=== PATIENT | female | born 1930 | race Asian ===

== ENCOUNTER 2016-11-02 11:54 | Inpatient (IN) | payer OTHER, MEDICAID ==
[~2016-11-02] VITALS: Ht 152.4 cm; Wt 43.1 kg
[2016-11-02 11:58] VITALS: BP 133/68
--- NOTE | 2016-11-02 12:08 | Emergency Room Report ---
History of Present Illness General Chief Complaint: Multiple Trauma/Fall Source: Patient Present Illness HPI Patient presents by paramedics for reports of a mechanical fall Patient present with pain to the left mid femur There was a question of mild headache Patient was given large amounts of morphine in the field At this time not able to give full history even with Danish translation There was no reports of lightheadedness or dizziness There was no reports of syncope Denies any neuropathy Allergies: Coded Allergies: No Known Allergies (Unverified , 11/02/16) Patient History Past Medical History: see triage record Pertinent Family History: none Reviewed Nursing Documentation: PMH: Agreed, PSxH: Agreed Nursing Documentation-PMH Hx Cardiac Problems: Yes Review of Systems All Other Systems: negative except mentioned in HPI Physical Exam Vital Signs Date Time Temp Pulse Resp B/P Pulse Ox O2 Delivery O2 Flow Rate FiO2 11/02/16 11:39 98.1 78 16 130/80 98 Sp02 EP Interpretation: reviewed, normal General Appearance: well appearing, no apparent distress Head: normocephalic, atraumatic Eyes: bilateral eye EOMI, bilateral eye PERRL ENT: hearing grossly normal, normal pharynx, TMs + canals normal, uvula midline Neck: full range of motion, supple, no meningismus, no bony tend Respiratory: lungs clear, normal breath sounds, no rhonchi, no respiratory distress, no retraction, no accessory muscle use Cardiovascular #1: normal peripheral pulses, regular rate, rhythm, no edema, no gallop, no JVD, no murmur Gastrointestinal: normal bowel sounds, non tender, soft, no mass, no organomegaly, non-distended, no guarding, no hernia, no pulsatile mass, no rebound Genitourinary: no CVA tenderness Musculoskeletal: other - Traction splint in place on the left lower leg sensory is intact, however significant pain to the mid femur Neurologic: oriented x3, responsive, sensory intact Psychiatric: mood/affect normal Skin: warm/dry, palpation normal Lymphatic: normal inspection, no adenopathy Procedures Splinting Splinting : Consent: Verbal Location: traction splint left lower leg Pre-Made Type: Pre-Proc Neuro Vasc Exam: normal Post-Proc Neuro Vasc Exam: normal Patient Tolerated: Well Complications: None Medical Decision Making Diagnostic Impression: Primary Impression: Femur fracture, left ER Course Given the patient's history examined presentation multiple imaging were obtained Baseline preop workup was also initiated Patient's imaging reveals mid femur fracture Traction splint is already in place and will be further utilized Orthopedics was contacted Patient admitted for further inpatient care Labs Test 11/02/16 12:15 White Blood Count 11.9 K/UL (4.8-10.8) Red Blood Count 3.78 M/UL (4.20-5.40) Hemoglobin 11.9 G/DL (12.0-16.0) Hematocrit 36.3 % (37.0-47.0) Mean Corpuscular Volume 96 FL (80-99) Mean Corpuscular Hemoglobin 31.6 PG (27.0-31.0) Mean Corpuscular Hemoglobin Concent 32.9 G/DL (32.0-36.0) Red Cell Distribution Width 11.0 % (11.6-14.8) Platelet Count 265 K/UL (150-450) Mean Platelet Volume 6.5 FL (6.5-10.1) Neutrophils (%) (Auto) 62.5 % (45.0-75.0) Lymphocytes (%) (Auto) 28.0 % (20.0-45.0) Monocytes (%) (Auto) 8.2 % (1.0-10.0) Eosinophils (%) (Auto) 0.6 % (0.0-3.0) Basophils (%) (Auto) 0.6 % (0.0-2.0) Prothrombin Time 9.4 SEC (9.30-11.50) Prothromb Time International Ratio 0.9 (0.9-1.1) Activated Partial Thromboplast Time 23 SEC (23-33) Sodium Level 139 mEQ/L (135-145) Potassium Level 4.0 mEQ/L (3.4-4.9) Chloride Level 100 mEQ/L (98-107) Carbon Dioxide Level 25 mEQ/L (20-30) Anion Gap 14 (5-15) Blood Urea Nitrogen 19 mg/dL (7-23) Creatinine 0.9 mg/dL (0.5-0.9) Estimat Glomerular Filtration Rate mL/min (>60) Glucose Level 148 mg/dL (74-106) Calcium Level 9.2 mg/dL (8.6-10.2) Total Bilirubin 0.6 mg/dL (0.0-1.2) Aspartate Amino Transf (AST/SGOT) 18 U/L (5-40) Alanine Aminotransferase (ALT/SGPT) 12 U/L (3-33) Alkaline Phosphatase 63 U/L (35-104) Total Creatine Kinase 76 U/L (26-140) Creatine Kinase MB 1.9 ng/mL (< 3.8) Creatine Kinase MB Relative Index 2.5 Troponin I < 0.30 ng/mL (<=0.30) Total Protein 6.8 g/dL (6.6-8.7) Albumin 3.9 g/dL (3.5-5.2) Globulin 2.9 g/dL Albumin/Globulin Ratio 1.3 (1.0-2.7) Rhythm Strip Diag. Results EP Interpretation: yes Rate: 66 Rhythm: NSR, no PVC's, no ectopy Chest X-Ray Diagnostic Results EP Interpretation: Yes Findings: no consolidation, no effusion, no pneumothorax, other - Chronic pathology Number of Views: 1 Other X-Ray Diagnostic Results Other X-Ray Diagnostic Results #1: EP Interpretation: Yes Findings: no fractures, no dislocation, no soft tissue swelling Number of Views: 1 - pelvic Other X-Ray Diagnostic Results #2: EP Interpretation: Yes Findings: no soft tissue swelling, other - mid femur fracture, displaced Number of Views: 2 - left femur Last Vital Signs Date Time Temp Pulse Resp B/P Pulse Ox O2 Delivery O2 Flow Rate FiO2 11/02/16 11:58 98.3 70 18 133/68 99 Status: improved Disposition: ADMITTED INPATIENT Condition: Serious NADYA RANDHAWA D.O. Nov 02, 2016 12:08
[2016-11-02 12:30] LABS: BASOPHILS % (AUTO) 0.6 % (0.0-2.0); EOSINOPHILS % (AUTO) 0.6 % (0.0-3.0); MEAN CORPUSCULAR HEMOGLOBIN 31.6 PG (27.0-31.0); MEAN CORPUSCULAR HGB CONC 32.9 G/DL (32.0-36.0); MEAN CORPUSCULAR VOLUME 96 FL (80-99); MEAN PLATELET VOLUME 6.5 FL (6.5-10.1); MONOCYTES % (AUTO) 8.2 % (1.0-10.0); NEUTROPHILS % (AUTO) 62.5 % (45.0-75.0); PLATELET COUNT 265 K/UL (150-450); RED BLOOD COUNT 3.78 M/UL (4.20-5.40); WHITE BLOOD COUNT 11.9 K/UL (4.8-10.8)
[2016-11-02 12:37] LABS: INR 0.9 (0.9-1.1); PROTHROMBIN TIME 9.4 SEC (9.30-11.50)
[2016-11-02 12:58] LABS: TROPONIN I < 0.30 ng/mL (<=0.30)
[2016-11-02 13:02] LABS: ALANINE AMINOTRANSFERASE 12 U/L (3-33); ALBUMIN/GLOBULIN RATIO 1.3 (1.0-2.7); ANION GAP 14 (5-15); ASPARTATE AMINO TRANSFERASE 18 U/L (5-40); CALCIUM 9.2 mg/dL (8.6-10.2); CARBON DIOXIDE 25 mEQ/L (20-30); CHLORIDE 100 mEQ/L (98-107); CREATININE 0.9 mg/dL (0.5-0.9); HEMOLYSIS 5; SODIUM 139 mEQ/L (135-145); TOTAL PROTEIN 6.8 g/dL (6.6-8.7)
[2016-11-02 13:12] LABS: CKMB 1.9 ng/mL (< 3.8)
[2016-11-02] MEDS ORDERED: NKM (13:22)
[2016-11-02] MEDS ORDERED: Morphine Sulfate 4mg/ml Inj IVP ONE (13:30)
[2016-11-02 14:20] VITALS: BP 118/65
[2016-11-02 16:56] VITALS: BP 130/71
[2016-11-02] MEDS ORDERED: Morphine Sulfate 2mg/ml Inj IVP PRN (17:15)
[2016-11-02] MEDS ORDERED: ATORVASTATIN CA20 MG ORAL (17:22)
[2016-11-02] MEDS ORDERED: LEXAPRO10 MG ORAL (17:22)
[2016-11-02] MEDS ORDERED: BYSTOLIC5 MG ORAL (17:22)
[2016-11-02] MEDS ORDERED: Norco 5mg/325mg tab ORAL PRN (18:00)
[2016-11-02 18:30] VITALS: BP 121/73
[2016-11-02] MEDS ORDERED: Enoxaparin 30mg Inj SUBQ SCH (19:00)
[2016-11-02 20:00] VITALS: BP 111/58
[2016-11-02] MEDS: D5 1/2NS 1,000 ML IV SCH (21:00)
[2016-11-03] VITALS: BP 115/67
[2016-11-03 04:00] VITALS: BP 109/59
[2016-11-03 07:09] LABS: BASOPHILS % (AUTO) 0.4 % (0.0-2.0); EOSINOPHILS % (AUTO) 0.2 % (0.0-3.0); LYMPHOCYTES % (AUTO) 20.3 % (20.0-45.0); MEAN CORPUSCULAR HEMOGLOBIN 31.3 PG (27.0-31.0); MEAN CORPUSCULAR HGB CONC 33.1 G/DL (32.0-36.0); MEAN CORPUSCULAR VOLUME 95 FL (80-99); MEAN PLATELET VOLUME 6.9 FL (6.5-10.1); MONOCYTES % (AUTO) 12.5 % (1.0-10.0); NEUTROPHILS % (AUTO) 66.5 % (45.0-75.0); PLATELET COUNT 205 K/UL (150-450); RED BLOOD COUNT 3.51 M/UL (4.20-5.40); RED CELL DISTRIBUTION WIDTH 10.9 % (11.6-14.8)
[2016-11-03 07:33] LABS: ALANINE AMINOTRANSFERASE 11 U/L (3-33); ALBUMIN/GLOBULIN RATIO 1.5 (1.0-2.7); ANION GAP 14 (5-15); ASPARTATE AMINO TRANSFERASE 19 U/L (5-40); CALCIUM 8.4 mg/dL (8.6-10.2); CARBON DIOXIDE 26 mEQ/L (20-30); CHLORIDE 98 mEQ/L (98-107); CREATININE 0.9 mg/dL (0.5-0.9); HEMOLYSIS 7; POTASSIUM 3.8 mEQ/L (3.4-4.9); SODIUM 138 mEQ/L (135-145)
[2016-11-03] MEDS: D5 1/2NS 1,000 ML IV SCH ×2 (07:33→20:26)
--- NOTE | 2016-11-03 08:10 | General Progress Note ---
Assessment/Plan Status: stable Assessment/Plan 1- Mechanical Fall and left femur fracture 2- HTN 3- HLP 4- Anemia 5- GI-DVT prophylaxia Plan: Dr Crespo, is consulted Dr Hurst, is consulted for cardiovascular assessment for Pre op eval Echo and Iron panel, are ordered will optimize current meds pending the lab result Subjective ROS Limited/Unobtainable: No Constitutional: Reports: malaise, weakness HEENT: Reports: no symptoms Cardiovascular: Reports: no symptoms Respiratory: Reports: no symptoms Gastrointestinal/Abdominal: Reports: no symptoms Allergies: Coded Allergies: No Known Allergies (Unverified , 11/02/16) Objective Last 24 Hour Vital Signs Date Time Temp Pulse Resp B/P Pulse Ox O2 Delivery O2 Flow Rate FiO2 11/03/16 04:00 98.0 72 19 109/59 95 Room Air 11/03/16 00:00 97.7 72 19 115/67 97 Room Air 11/02/16 20:00 98.1 76 20 111/58 98 Room Air 11/02/16 18:38 98.1 72 15 121/73 97 Room Air 11/02/16 18:30 98.1 72 15 121/73 97 Room Air 11/02/16 16:56 97.9 76 18 130/71 99 Room Air 11/02/16 14:20 98.0 74 16 118/65 100 Room Air 11/02/16 11:58 98.3 70 18 133/68 99 11/02/16 11:39 98.1 78 16 130/80 98 Intake and Output 11/02/16 11/03/16 19:00 07:00 Intake Total 500 ml 525 ml Output Total 700 ml Balance 500 ml -175 ml Intake IV Total 500 ml 525 ml Output Urine Total 700 ml Laboratory Tests 11/02/16 12:15: White Blood Count 11.9H, Red Blood Count 3.78L, Hemoglobin 11.9L, Hematocrit 36.3L, Mean Corpuscular Volume 96, Mean Corpuscular Hemoglobin 31.6H, Mean Corpuscular Hemoglobin Concent 32.9, Red Cell Distribution Width 11.0L, Platelet Count 265, Mean Platelet Volume 6.5, Neutrophils (%) (Auto) 62.5, Lymphocytes (%) (Auto) 28.0, Monocytes (%) (Auto) 8.2, Eosinophils (%) (Auto) 0.6, Basophils (%) (Auto) 0.6, Prothrombin Time 9.4, Prothromb Time International Ratio 0.9, Activated Partial Thromboplast Time 23, Sodium Level 139, Potassium Level 4.0, Chloride Level 100, Carbon Dioxide Level 25, Anion Gap 14, Blood Urea Nitrogen 19, Creatinine 0.9, Estimat Glomerular Filtration Rate , Glucose Level 148H, Calcium Level 9.2, Total Bilirubin 0.6, Aspartate Amino Transf (AST/SGOT) 18, Alanine Aminotransferase (ALT/SGPT) 12, Alkaline Phosphatase 63, Total Creatine Kinase 76, Creatine Kinase MB 1.9, Creatine Kinase MB Relative Index 2.5, Troponin I < 0.30, Total Protein 6.8, Albumin 3.9 , Globulin 2.9, Albumin/Globulin Ratio 1.3 11/03/16 05:25: White Blood Count 9.0, Red Blood Count 3.51L, Hemoglobin 11.0L, Hematocrit 33.2L , Mean Corpuscular Volume 95, Mean Corpuscular Hemoglobin 31.3H, Mean Corpuscular Hemoglobin Concent 33.1, Red Cell Distribution Width 10.9L, Platelet Count 205, Mean Platelet Volume 6.9, Neutrophils (%) (Auto) 66.5, Lymphocytes (%) (Auto) 20.3, Monocytes (%) (Auto) 12.5H, Eosinophils (%) (Auto) 0.2, Basophils (%) (Auto) 0.4, Sodium Level 138, Potassium Level 3.8, Chloride Level 98, Carbon Dioxide Level 26, Anion Gap 14, Blood Urea Nitrogen 17, Creatinine 0.9, Estimat Glomerular Filtration Rate , Glucose Level 116H, Calcium Level 8.4L, Total Bilirubin 0.9, Aspartate Amino Transf (AST/SGOT) 19, Alanine Aminotransferase (ALT/SGPT) 11, Alkaline Phosphatase 57, Total Protein 6.0L, Albumin 3.6, Globulin 2.4, Albumin/Globulin Ratio 1.5, Hemoglobin A1c 5.0 Height (Feet): 5 Height (Inches): 0.00 Weight (Pounds): 95 General Appearance: WD/WN EENT: PERRL/EOMI Neck: supple Cardiovascular: normal rate Respiratory/Chest: lungs clear Abdomen: soft Extremities: other - left femur in traction Neurologic: pan washer II-XII grossly normal Shawn Gonzalez MD Nov 03, 2016 08:10
--- NOTE | 2016-11-03 08:11 | History & Physical ---
History and Physical History & Physicial patient is seen and examined. Dictation is completed Shawn Gonzalez MD Nov 03, 2016 08:11
[2016-11-03 08:24] LABS: CHOLESTEROL/HDL RATIO 2.3 (3.3-4.4)
[2016-11-03 08:25] LABS: TROPONIN I < 0.30 ng/mL (<=0.30)
--- NOTE | 2016-11-03 09:00 | Consultation ---
Consult Note Consult Note 86 yo female with mechanical fall and left mid shaft femur fracture xray reviewed. Left LE in brace, tender to palpation. n/v intact Assessment/Plan left mid shaft femur fracture plan for ORIF tomorrow can eat today. NPO p MN 2D echo ordered. med clearance TRINITY PARKER Nov 03, 2016 09:00
[2016-11-03 09:20] VITALS: BP 115/64
--- NOTE | 2016-11-03 10:09 | History and Physical Report ---
DATE OF ADMISSION: 11/02/2016 ADMISSION HISTORY AND PHYSICAL SOURCE OF INFORMATION: EMR. HISTORY OF PRESENT ILLNESS: The patient is an 86-year-old, Occitan female. The patient has been transferred regarding fall and diagnosed a fracture of the left hip. At the time of evaluation, the patient appears comfortable and review of systems as follows. PAST MEDICAL HISTORY: Hyperlipidemia, anxiety/depression, hypertension, and anemia. MEDICATIONS: Home medications atorvastatin, Lexapro, and bystolic. ALLERGIES: NKDA. SOCIAL HISTORY: No documented history of illicit drug abuse, smoking or alcohol abuse. REVIEW OF SYSTEMS: Negative for chest pain. Negative for shortness of breath. Negative for abnormal bleeding, diarrhea, or constipation. Negative for swelling on the extremities. Positive for decreased range of motion in the left lower extremity. PHYSICAL EXAMINATION: VITAL SIGNS: Blood pressure 130/80, temperature 98.2 degrees, pulse oximetry 98% on room air, respiratory rate 18, pulse rate 70-80. HEAD AND NECK: Atraumatic and normocephalic. CHEST: Clear to auscultation. HEART: S1 and S2. Regular rate and rhythm. ABDOMEN: Soft. No organomegaly. MUSCULOSKELETAL: Decreased range of motion of the left upper extremity. Positive for limb or extremity traction to the left lower extremity. NEUROLOGY: The patient is awake. No gross cranial nerve deficit. LABORATORY AND DIAGNOSTIC DATA: Lab results dated 11/02/2016 shows WBC 11.9, hemoglobin 11.9, and platelets 265,000. Sodium 139, potassium 4, BUN 19, and creatinine 0.9. IMAGING: The official report is pending. COURSE OF EMERGENCY ROOM EVALUATION: The patient with initial vital signs reported more stable. Initial blood work showed leukocytosis, otherwise unremarkable. ASSESSMENT: 1. Mechanical fall, fracture of the meat left-sided 2. Hypertension. 3. Hyperlipidemia. 4. Anemia. 5. Anxiety/depression. 6. Gastrointestinal and deep vein thrombosis prophylaxes. PLAN OF CARE: Orthopedic surgeon, already being notified. Proceed with a 2D echocardiogram, 12-lead EKG and we will consult Cardiology, Dr. Hurst, for cardiovascular preop evaluation. Continue with the current pain management. Shawn Gonzalez M.D. DR: Kamran JOB#: [id number] CC:
--- NOTE | 2016-11-03 10:28 | Diagnostic Imaging Report ---
Indications: PAIN Technique: Two views of the left femur Comparison: None Findings: There is a slightly angulated fracture of the midshaft femur, which is displaced by just over one bone width, overrides by about 3 cm, and a slightly angulated. Overlying traction device is present. Impression: Positive for midshaft femoral fracture
--- NOTE | 2016-11-03 11:28 | Diagnostic Imaging Report ---
Indication: Chest pain Technique: One view of the chest Comparison: none Findings: Irregular calcified nodules are seen in the right upper lung. Fibronodular scarring is seen in the left upper lung. The lungs and pleural spaces are otherwise clear. Lungs are somewhat hyperinflated. Heart size is normal. Aorta is calcified Impression: Hyperinflation, consistent with COPD Chronic biapical parenchymal scarring No acute process
--- NOTE | 2016-11-03 11:28 | Diagnostic Imaging Report ---
Indication: PAIN, status post fall Technique: One view the pelvis Comparison: None Findings: Overlying traction device may obscure pathology. No acute fractures. No dislocations. The joint spaces are preserved. There are degenerative changes of the lumbosacral junction Impression: No acute process
[2016-11-03 11:39] LABS: APPEARANCE,URINE SLIGHTLY CLOUDY; KETONES,URINE NEGATIVE (NEGATIVE); LEUKOCYTE ESTERASE ,URINE 3+ (NEGATIVE); NITRITE,URINE NEGATIVE (NEGATIVE); PH,URINE 7 (4.5-8.0); PROTEIN,URINE NEGATIVE (NEGATIVE); UROBILINOGEN,URINE NORMAL MG/DL (0.0-1.0)
[2016-11-03 12:13] LABS: AMORPHOUS SEDIMENT,UR MODERATE /LPF; BACTERIA,URINE FEW /HPF; SQUAMOUS EPITHELIAL CELL,UR FEW /LPF (NONE/OCC)
--- NOTE | 2016-11-03 12:28 | Consultation ---
DATE OF CONSULTATION: ORTHOPEDIC CONSULTATION CONSULTING PHYSICIAN: Iron Crespo M.D. HISTORY OF PRESENT ILLNESS: The patient is a very pleasant 86-year-old female, who apparently had a mechanical fall and was brought to [facility] via EMS. She was noted to have a left leg pain and a midshaft left femur fracture. Orthopedic consult has been called for surgical intervention. PAST MEDICAL HISTORY: Hypertension, hyperlipidemia, and anemia. PAST SURGICAL HISTORY: None. MEDICATIONS: Current medications, please see chart. ALLERGIES: None. SOCIAL HISTORY: She is . She has children in the area. She does not drink. She does not smoke. PHYSICAL EXAMINATION: GENERAL: She is alert, she is responsive and cooperative during physical exam. She is Latvian speaking, but is able to understand me and follow my directions. EXTREMITIES: She wiggles her toes on command. She indicates sensation of the right foot and the left foot feels pain. She grimaces and winces in pain upon palpation of the left femur. She is in a left lower extremity brace. LABORATORY AND DIAGNOSTIC DATA: X-ray of the pelvis and femur reviewed there is a left midshaft femur fracture with displacement. IMPRESSION: 1. Left a displaced midshaft femur fracture. DISCUSSION: At this time, I discussed the patient my findings and she did seem to verbalize understanding. She understands she will have to have surgery for this and I discussed that with her including what is involved with the surgery as well as rehabilitation and recovery and the risks associated with surgery, risk of nerve injury, vessel injury, risk of infection and bleeding, risk of fracture, hardware failure, need for revision of surgery down the line. We will discuss with her and we will work on setting this up for tomorrow. We asked that Dr. Gonzalez, as well as Dr. Edmondson see this patient for medical and cardiac clearance. A 2D echo has been ordered. Thank you for allowing to participate in the care of this patient. If you have any questions or concerns, please do not hesitate to contact me. Iron Crespo M.D. Kalyani Aquino DR: Jorge JOB#: [id number] CC:
--- NOTE | 2016-11-03 15:05 | Anethesia Preoperative Eval ---
Anesthesia Pre-op PMH/ROS General Date of Evaluation: Nov 03, 2016 Time of Evaluation: 16:20 Anesthesiologist: Miki ASA Score: ASA 3 Mallampati Score Class I : Soft palate, uvula, fauces, pillars visible Class II: Soft palate, uvula, fauces visible Class III: Soft palate, base of uvula visible Class IV: Only hard plate visible Mallampati Classification: Class II Surgeon: Cherie Diagnosis: Left femur fracture Surgical Procedure: ORIF left femur Allergies: Coded Allergies: No Known Allergies (Unverified , 11/02/16) Medications: see eMAR Past Medical History Cardiovascular: Reports: HTN, other - Hyperlipidemia Pulmonary: Denies: COPD, XIMENA, asthma, other Gastrointestinal/Genitourinary: Denies: CRI, ESRD, GERD, other Neurologic/Psychiatric: Reports: depression/anxiety Endocrine: Denies: DM, hypothyroidism, other, steroids HEENT: Denies: MODOC (L), MODOC (R), cataract (L), cataract (R), glaucoma, other Hematology/Immune: Reports: anemia Musculoskeletal/Integumentary: Denies: DDD, DJD, OA, RA, edema, other PMH Narrative: HTN, anemia, depression Anesthesia Pre-op Phys. Exam Physician Exam Last Vital Signs Date Time Temp Pulse Resp B/P Pulse Ox O2 Delivery O2 Flow Rate FiO2 11/03/16 09:20 98.2 70 18 115/64 98 Room Air Constitutional: NAD Neurologic: CN 2-12 intact Cardiovascular: RRR, no M/R/G Respiratory: CTA Gastrointestinal: S/NT/ND Airway Exam Mallampati Score: Class II MO: full ROM: full Teeth: intact Anesthesia Pre-op A/P Labs Hematology Test 11/03/16 05:25 White Blood Count 9.0 K/UL (4.8-10.8) Red Blood Count 3.51 M/UL (4.20-5.40) L Hemoglobin 11.0 G/DL (12.0-16.0) L Hematocrit 33.2 % (37.0-47.0) L Mean Corpuscular Volume 95 FL (80-99) Mean Corpuscular Hemoglobin 31.3 PG (27.0-31.0) H Mean Corpuscular Hemoglobin Concent 33.1 G/DL (32.0-36.0) Red Cell Distribution Width 10.9 % (11.6-14.8) L Platelet Count 205 K/UL (150-450) Mean Platelet Volume 6.9 FL (6.5-10.1) Neutrophils (%) (Auto) 66.5 % (45.0-75.0) Lymphocytes (%) (Auto) 20.3 % (20.0-45.0) Monocytes (%) (Auto) 12.5 % (1.0-10.0) H Eosinophils (%) (Auto) 0.2 % (0.0-3.0) Basophils (%) (Auto) 0.4 % (0.0-2.0) Chemistry Test 11/03/16 05:25 11/03/16 06:53 Sodium Level 138 mEQ/L (135-145) Potassium Level 3.8 mEQ/L (3.4-4.9) Chloride Level 98 mEQ/L (98-107) Carbon Dioxide Level 26 mEQ/L (20-30) Anion Gap 14 (5-15) Blood Urea Nitrogen 17 mg/dL (7-23) Creatinine 0.9 mg/dL (0.5-0.9) Estimat Glomerular Filtration Rate mL/min (>60) Glucose Level 116 mg/dL (74-106) H Hemoglobin A1c 5.0 % (< 6.0) Calcium Level 8.4 mg/dL (8.6-10.2) L Total Bilirubin 0.9 mg/dL (0.0-1.2) Aspartate Amino Transf (AST/SGOT) 19 U/L (5-40) Alanine Aminotransferase (ALT/SGPT) 11 U/L (3-33) Alkaline Phosphatase 57 U/L (35-104) Total Protein 6.0 g/dL (6.6-8.7) L Albumin 3.6 g/dL (3.5-5.2) Globulin 2.4 g/dL Albumin/Globulin Ratio 1.5 (1.0-2.7) Troponin I < 0.30 ng/mL (<=0.30) Triglycerides Level 131 mg/dL (< 150) Cholesterol Level 112 mg/dL (< 200) LDL Cholesterol 37 mg/dL (60-99) L HDL Cholesterol 49 mg/dL (> 60) Cholesterol/HDL Ratio 2.3 (3.3-4.4) L Studies Pre-op Studies: echo - EF 60-65%, normal wall motion Risk Assessment & Plan Assessment: Left femur fracture Plan: GA vs spinal Status Change Before Surgery: MARY Patricio M.D. Nov 03, 2016 15:04
[2016-11-03 20:10] VITALS: BP 122/65
--- NOTE | 2016-11-03 21:37 | Cardiology Progress Note ---
Assessment/Plan Assessment/Plan The patient is seen and examined, full consult note will be dictated. Objective Last 24 Hour Vital Signs Date Time Temp Pulse Resp B/P Pulse Ox O2 Delivery O2 Flow Rate FiO2 11/03/16 20:10 97.7 82 22 122/65 98 Room Air 11/03/16 09:20 98.2 70 18 115/64 98 Room Air 11/03/16 04:00 98.0 72 19 109/59 95 Room Air 11/03/16 00:00 97.7 72 19 115/67 97 Room Air Intake and Output 11/02/16 11/03/16 19:00 07:00 Intake Total 500 ml 525 ml Output Total 700 ml Balance 500 ml -175 ml IV Total 500 ml 525 ml Output Urine Total 700 ml Laboratory Tests Test 11/03/16 05:25 11/03/16 06:53 11/03/16 09:30 White Blood Count 9.0 K/UL (4.8-10.8) Red Blood Count 3.51 M/UL (4.20-5.40) L Hemoglobin 11.0 G/DL (12.0-16.0) L Hematocrit 33.2 % (37.0-47.0) L Mean Corpuscular Volume 95 FL (80-99) Mean Corpuscular Hemoglobin 31.3 PG (27.0-31.0) H Mean Corpuscular Hemoglobin Concent 33.1 G/DL (32.0-36.0) Red Cell Distribution Width 10.9 % (11.6-14.8) L Platelet Count 205 K/UL (150-450) Mean Platelet Volume 6.9 FL (6.5-10.1) Neutrophils (%) (Auto) 66.5 % (45.0-75.0) Lymphocytes (%) (Auto) 20.3 % (20.0-45.0) Monocytes (%) (Auto) 12.5 % (1.0-10.0) H Eosinophils (%) (Auto) 0.2 % (0.0-3.0) Basophils (%) (Auto) 0.4 % (0.0-2.0) Sodium Level 138 mEQ/L (135-145) Potassium Level 3.8 mEQ/L (3.4-4.9) Chloride Level 98 mEQ/L (98-107) Carbon Dioxide Level 26 mEQ/L (20-30) Anion Gap 14 (5-15) Blood Urea Nitrogen 17 mg/dL (7-23) Creatinine 0.9 mg/dL (0.5-0.9) Estimat Glomerular Filtration Rate mL/min (>60) Glucose Level 116 mg/dL (74-106) H Hemoglobin A1c 5.0 % (< 6.0) Calcium Level 8.4 mg/dL (8.6-10.2) L Total Bilirubin 0.9 mg/dL (0.0-1.2) Aspartate Amino Transf (AST/SGOT) 19 U/L (5-40) Alanine Aminotransferase (ALT/SGPT) 11 U/L (3-33) Alkaline Phosphatase 57 U/L (35-104) Total Protein 6.0 g/dL (6.6-8.7) L Albumin 3.6 g/dL (3.5-5.2) Globulin 2.4 g/dL Albumin/Globulin Ratio 1.5 (1.0-2.7) Troponin I < 0.30 ng/mL (<=0.30) Triglycerides Level 131 mg/dL (< 150) Cholesterol Level 112 mg/dL (< 200) LDL Cholesterol 37 mg/dL (60-99) L HDL Cholesterol 49 mg/dL (> 60) Cholesterol/HDL Ratio 2.3 (3.3-4.4) L Urine Color Pale yellow Urine Appearance Slightly cloudy Urine pH 7 (4.5-8.0) Urine Specific [place] 1.010 (1.005-1.035) Urine Protein Negative (NEGATIVE) Urine Glucose (UA) Negative (NEGATIVE) Urine Ketones Negative (NEGATIVE) Urine Occult Blood 5+ (NEGATIVE) H Urine Nitrite Negative (NEGATIVE) Urine Bilirubin Negative (NEGATIVE) Urine Urobilinogen Normal MG/DL (0.0-1.0) Urine Leukocyte Esterase 3+ (NEGATIVE) H Urine RBC 10-15 /HPF (0 - 2) H Urine WBC 5-10 /HPF (0 - 2) H Urine Squamous Epithelial Cells Few /LPF (NONE/OCC) Urine Amorphous Sediment Moderate /LPF (NONE) H Urine Bacteria Few /HPF (NONE) CHAPITO KING Nov 03, 2016 21:37
[2016-11-04] VITALS (12 sets, daily range): BP systolic 104–175; BP diastolic 57–86
--- NOTE | 2016-11-04 00:58 | Consultation ---
DATE OF CONSULTATION: 11/03/2016 CARDIOLOGY CONSULTATION CONSULTING PHYSICIAN: Shalom Hurst M.D. REFERRING PHYSICIAN: Shawn Gonzalez M.D. REASON FOR CONSULTATION: Preoperative cardiac clearance for noncardiac surgery. HISTORY OF PRESENT ILLNESS: The patient is a very pleasant 86-year-old female, who presents to the hospital with pain in the left mid femur. Apparently, the patient had sustained a mechanical fall without loss of consciousness leading to a great deal of pain the left mid femur. The patient was given a large amount of morphine in the field, and was brought to the emergency department of [facility]. The patient is seen. The patient underwent initial evaluation in the emergency department and was found to have left femur fracture. The patient is scheduled for open reduction and internal fixation of the left femur. Cardiology consultation was made at the request of Dr. Chang for preoperative cardiac clearance. I used a Sinhala senior data quality analyst to assist in obtaining history from the patient. According to the nurse, the patient was capable of doing her activities of daily living without having any limitations. She denies any history of coronary artery disease or congestive heart failure. The patient denies any chest pain or shortness of breath with activities. PAST MEDICAL HISTORY: 1. History of cardiac arrhythmia, the detail of which is unknown. 2. History of hyperlipidemia. 3. History of anxiety/depression. 4. History of hypertension. 5. History of anemia. MEDICATIONS: Atorvastatin 10 mg p.o. at bedtime, Lexapro 5 mg p.o. daily, and Bystolic 5 mg p.o. daily. PAST SURGICAL HISTORY: None. FAMILY HISTORY: No premature coronary artery disease in first-degree relatives. ALLERGIES: No known drug allergies. REVIEW OF SYSTEMS: HEENT: Denies any headache, diplopia, or blurred vision. Constitutional: Denies any fever, chills, night sweats, or weight loss. Cardiovascular: Denies any chest pain, shortness of breath, PND, orthopnea, or leg swelling. Pulmonary: Denies any cough, hemoptysis, or wheezing. Gastrointestinal: Denies any nausea, vomiting, diarrhea, constipation, abdominal pain, or GI bleed. Neurologic: Denies any motor dysfunction, sensory deficits, or altered speech. Musculoskeletal: Complains of tenderness of the left mid femur at the site of fracture. PHYSICAL EXAMINATION: VITAL SIGNS: Blood pressure is 130/90, respirations 16, pulse of 78, and O2 saturation is 100% on room air. GENERAL: This is a very unfortunate 86-year-old female, in no apparent respiratory distress. Alert and oriented x4. HEENT: Atraumatic and normocephalic. Pupils are equal, round, and reactive to light and accommodation. Extraocular muscles are intact. NECK: JVP less than 5 cm. No carotid bruit. Carotid upstrokes 2+ bilaterally. CVS: Normal S1 and S2. Regular ate and rhythm. No murmurs, gallops, or rubs. PMI is at the fourth intercostal space in the midclavicular line. LUNGS: Clear to auscultation bilaterally. ABDOMEN: Soft, nontender, and nondistended. No hepatosplenomegaly. Positive bowel sounds. EXTREMITIES: No evidence of edema, clubbing, or cyanosis. LABORATORY AND DIAGNOSTIC DATA: Laboratory findings: WBC 11.9, hemoglobin 11.9, hematocrit 36.3, platelet count is 265,000. Sodium is 139, potassium is 4.0, chloride 100, bicarbonate 25, BUN of 19, creatinine 0.9, hemoglobin A1c 5.0, glucose is 148, and calcium is 9.2. Troponin I x2 negative. Total cholesterol was 112, LDL of 37, HDL 49, and triglycerides of 131. ASSESSMENT AND PLAN: The patient is a very unfortunate 86-year-old female, seen in Cardiology consultation at the request of Dr. Chang. The patient does not have any history of coronary artery disease. She was capable for updating medications with her usual activities. A 2D echocardiography in this patient had shown normal left ventricular systolic function, left ventricular ejection fraction estimated to be 65%. The patient is cleared for intermediate risk of open reduction and internal fixation of the left mid femur with the risk of coronary artery events preoperatively estimated to be less than 1%. I would like to thank, Dr. Chang, for the courtesy of this consultation. Shalom Hurst M.D. DR: BRAIN JOB#: [id number] CC:
[2016-11-04] MEDS ORDERED: Norco 10mg/325mg tab ORAL PRN (09:15)
--- NOTE | 2016-11-04 09:27 | General Progress Note ---
Assessment/Plan Status: stable Assessment/Plan 1- Mechanical Fall and left femur fracture 2- HTN 3- HLP 4- Anemia 5- GI-DVT prophylaxia 6. UTI Plan: start Rocephin Patient is in acceptable ( intermediate (1-3 %)) medical and cardiovascular risk for the surgery. It is ok to proceed with Surgery. No medical contraindication at this time Subjective ROS Limited/Unobtainable: No Constitutional: Reports: malaise, weakness HEENT: Reports: no symptoms Cardiovascular: Reports: no symptoms Allergies: Coded Allergies: No Known Allergies (Unverified , 11/02/16) Objective Last 24 Hour Vital Signs Date Time Temp Pulse Resp B/P Pulse Ox O2 Delivery O2 Flow Rate FiO2 11/04/16 08:50 98.2 77 20 125/60 94 Room Air 11/04/16 04:00 98.1 71 20 107/59 97 Room Air 11/04/16 00:08 99.5 81 22 104/64 93 Room Air 11/03/16 20:10 97.7 82 22 122/65 98 Room Air Intake and Output 11/03/16 11/04/16 19:00 07:00 Intake Total 1265 ml 975 ml Output Total 1900 ml 675 ml Balance -635 ml 300 ml Intake Oral 440 ml IV Total 825 ml 975 ml Output Urine Total 1900 ml 675 ml Laboratory Tests 11/03/16 09:30: Urine Color Pale yellow, Urine Appearance Slightly cloudy, Urine pH 7, Urine Specific [place] 1.010, Urine Protein Negative, Urine Glucose (UA) Negative, Urine Ketones Negative, Urine Occult Blood 5+H, Urine Nitrite Negative, Urine Bilirubin Negative, Urine Urobilinogen Normal, Urine Leukocyte Esterase 3+H, Urine RBC 10-15H, Urine WBC 5-10H, Urine Squamous Epithelial Cells Few, Urine Amorphous Sediment ModerateH, Urine Bacteria Few Height (Feet): 5 Height (Inches): 0.00 Weight (Pounds): 95 General Appearance: no apparent distress EENT: PERRL/EOMI Neck: supple Cardiovascular: normal rate Respiratory/Chest: lungs clear Abdomen: soft Extremities: other - pain in left leg Neurologic: saw superintendent II-XII grossly normal Shawn Gonzalez MD Nov 04, 2016 09:27
[2016-11-04] MEDS ORDERED: cefTRIAXone 2 GM in D5W 110 ML IVPB SCH (09:30)
[2016-11-04] MEDS ORDERED: Ropivacaine 5mg/ml Vial 20ml INJ ONE (09:44)
[2016-11-04] MEDS ORDERED: Bacitracin 50000 Units Vial ONE (09:55)
[2016-11-04] MEDS: D5 1/2NS 1,000 ML IV SCH (10:10)
[2016-11-04] MEDS ORDERED: cefTRIAXone 1gm/D5W 55ml IVPB SCH ×2 (11:00)
[2016-11-04] MEDS ORDERED: NS Irrig 1000ml ONE (13:00)
[2016-11-04] MEDS ORDERED: Sterile Water Irrig 1000ml IRRIG ONE (13:00)
[2016-11-04] MEDS ORDERED: Propofol 10mg/ml 20ml IV ONE (13:00)
[2016-11-04] MEDS ORDERED: Glycopyrrolate 0.2mg/ml 1ml Vial ONE (13:00)
[2016-11-04] MEDS ORDERED: fentaNYL 250mcg/5ml ONE (13:00)
[2016-11-04] MEDS ORDERED: Dexamethasone 4mg/ml vial ONE (13:00)
[2016-11-04] MEDS ORDERED: Zemuron 50mg/5ml Inj IV ONE ×2 (13:00)
[2016-11-04] MEDS ORDERED: LR 1000ml ONE (13:00)
[2016-11-04] MEDS ORDERED: Neostigmine 1mg/ml 10ml Inj ONE (13:00)
--- NOTE | 2016-11-04 13:12 | Pre-Procedure Note/Attestation ---
Pre-Procedure Note/Attestation Complete Prior to Procedure Planned Procedure: left Procedure Narrative: Left mid shaft femur ORIF Indications for Procedure Pre-Operative Diagnosis: Left mid-shaft femur fracture Attestation I attest that I discussed the nature of the procedure; its benefits; risks and complications; and alternatives (and the risks and benefits of such alternatives ), prior to the procedure, with the patient (or the patient's legal customer contact representative). I attest that, if there was a reasonable possibility of needing a blood transfusion, the patient (or the patient's legal customer contact representative) was given the [facility] standardized written summary, pursuant to the [place] Blood Safety Act ([place] Health and Safety Code # 1645, as amended). I attest that I re-evaluated the patient just prior to the surgery and that there has been no change in the patient's H&P, except as documented below:NONE COREY SCHMIDT Nov 04, 2016 13:12
[2016-11-04] MEDS ORDERED: NS Irrig 1000ml IRRIG ONE (13:15)
[2016-11-04] MEDS ORDERED: Tranexamic Acid 1,000 MG in NS 100 ML IVPB ONE (13:15)
[2016-11-04] MEDS ORDERED: Norco 7.5mg/325mg tab ORAL PRN (13:30)
[2016-11-04] MEDS ORDERED: Milk of Magnesia 30ml Ud ORAL PRN (13:30)
[2016-11-04] MEDS ORDERED: HYDROmorphone 1mg/ml Carpuject SUBQ PRN (13:30)
[2016-11-04] MEDS ORDERED: Norco 5mg/325mg tab ORAL PRN (13:30)
[2016-11-04] MEDS ORDERED: LR 1000ml 1,000 ML IVLG SCH (13:56)
[2016-11-04] MEDS ORDERED: DiphenhydrAMINE 50mg/ml Inj IVP PRN (14:00)
[2016-11-04] MEDS ORDERED: Ketorolac 30mg Inj IV PRN (14:00)
[2016-11-04] MEDS ORDERED: Hydromorphone 0.5mg/0.5ml inj IVP PRN (14:00)
[2016-11-04] MEDS ORDERED: fentaNYL 100 mcg/2 mL IV PRN (14:00)
[2016-11-04] MEDS ORDERED: Labetalol 5mg/ml 20ml vial IV PRN (14:00)
--- NOTE | 2016-11-04 14:56 | Brief Operative Note ---
Immediate Post Operative Note Operative Note Chief Complaint: left leg pain Pre-op Diagnosis: left femur fracture Procedure: left femur ORIF Post-op Diagnosis: same as pre-op Findings: consistent w/pre-op dx studies Surgeon: ganjianpour. rodrigues Visitor Services Specialist: kay vásquez Anesthesiologist: md tapan Anesthesia: general Specimen: none Complications: none Condition: stable Estimated Blood Loss: minimal Drains: none Implant(s) used?: Yes - arely femoral nail TRINITY VÁSQUEZ Nov 04, 2016 14:56
--- NOTE | 2016-11-04 15:07 | Immediate Post-Op Evaluation ---
Immediate Post-Op Evalulation Immediate Post-Op Evalulation Procedure: Left femur ORIF Date of Evaluation: Nov 04, 2016 Time of Evaluation: 15:05 IV Fluids: 700 Blood Products: 0 Estimated Blood Loss: 125 Urinary Output: 100 Blood Pressure Systolic: 166 Blood Pressure Diastolic: 81 Pulse Rate: 83 Respiratory Rate: 16 O2 Sat by Pulse Oximetry: 95 Temperature (Fahrenheit): 98.1 Pain Score (1-10): 0 Nausea: No Vomiting: No Complications 0 Patient Status: awake, reacts, patent, none Hydration Status: adequate Drug: Ancef 1g Given Within 1 Hr of Incision: Yes Time Given: 13:30 CARI MILLER M.D. Nov 04, 2016 15:07
--- NOTE | 2016-11-04 16:06 | Diagnostic Imaging Report ---
Indications: Open reduction and internal fixation of left femur fracture Technique: The procedure including fluoroscopy performed by Dr. Talbert. Portable intraoperative AP and lateral images of the left thigh performed Findings: Comparison: 11/02/16 Sequential images demonstrate placement of an intramedullary janee across the initial displaced fracture of the mid diaphysis of the left femur. Main fracture fragments are subsequently in anatomic alignment IMPRESSION: ORIF left femoral diaphyseal fracture
[2016-11-04] MEDS: Docusate 100mg tablet ORAL SCH (17:55)
[2016-11-04] MEDS: D5 1/2NS w/KCl 20mEq 1,000 ML IV SCH (17:56)
[2016-11-04] MEDS: ceFAZolin sod 2 GM in D5W 110 ML IV SCH (18:56)
[2016-11-04] MEDS: oxyCONTIN 20mg tab ORAL SCH (20:22)
--- NOTE | 2016-11-04 23:28 | Operative Note - Dictated ---
DATE OF OPERATION: 11/04/2016 PREOPERATIVE DIAGNOSIS: Left midshaft displaced femur fracture. POSTOPERATIVE DIAGNOSIS: Left midshaft displaced femur fracture. PROCEDURE: Left femur open reduction and internal fixation using a Rusty trochanteric entry femoral nail with one proximal screw fixation in static position and one distal screw in the dynamic position. SURGEON: Iron Crespo M.D. DRYWALL WORKER: Shellie Mao PA-C. ANESTHESIOLOGIST: Dr. Hector. ANESTHESIA: General endotracheal anesthesia. EBL: Less than 150 mL. COMPLICATIONS: None. BRIEF HISTORY: The patient is a pleasant 86-year-old female, who sustained a mechanical fall and broke her femur. This was a closed fracture. She was cleared medically. After she was cleared and after full discussion of risks and benefits of the surgery including infection, bleeding, neurovascular complication, possibility of malunion, possibility of nonunion, possibility of other complications, leg-length discrepancies, DVT, PEs, and other unforeseen complications, she opted for surgical treatment as described above. OPERATIVE PROCEDURE: The patient was brought to the operating table and was placed supine. All pressure points well padded. General endotracheal anesthesia was induced. The patient was placed on the fracture table with the left leg in traction and right leg in a well leg de [place]. Left leg was then prepped and draped in usual sterile fashion. An incision was made proximal to the trochanter. The trochanter was palpated and a guide pin was placed through the trochanter into the intramedullary canal. The position was checked on AP and lateral images and appeared to be perfect. Entry into the femur was then obtained using a proximal reamer and then a curved guidewire was passed through the fracture site. The position of fracture was checked on AP and lateral and the guidewire was across the fracture site in the intramedullary canal. At this point, sequential reaming was performed starting at [address] up to 12.5 mm reamer. At this point, measurements were made and size 11 mm nail with 36 cm length was then passed over the guidewire without any complications. The fracture reduction was perfect on AP and lateral. At this point, the traction was removed. The proximal screw was then placed in using a proximal jig. The distal dynamic screw was placed in using freehand technique. Positions of screws were checked on AP and lateral, and appeared to be perfect. Once this was completed, all wounds were thoroughly irrigated using copious amount of fluid. Final images were obtained. All the hardware positioning and fracture positioning were acceptable. Wounds were thoroughly irrigated using copious amount of fluid and gluteal fascia was closed using #1 Vicryl suture. Subcutaneous tissue was closed using 2-0 Vicryl suture. Skin was closed using 3-0 Monocryl suture. Steri-Strips were applied and a sterile dressing was applied and the patient was taken to recovery room off the fracture table in stable condition. Iron Crespo M.D. DR: Maria A JOB#: [id number] CC:
--- NOTE | 2016-11-04 23:55 | Cardiology Progress Note ---
Assessment/Plan Assessment/Plan 1. s/p left femur ORIF, POD # 0, no perioperative cardiac events, will obtain 12 lead ECG in am, continue DVT prophylaxis, pain control, hydration. 2. Normal LV systolic function with LVEF at 55%. 3. Moderate aortic regurgitation, asymptomatic. 4. HTN 5. Hyperlipidemia Subjective Subjective Sinus rhythm at 73. s/p Left femur ORIF POD #0 Objective Last 24 Hour Vital Signs Date Time Temp Pulse Resp B/P Pulse Ox O2 Delivery O2 Flow Rate FiO2 11/04/16 20:00 98.2 74 18 113/62 95 Room Air 11/04/16 16:00 97.8 73 18 129/57 100 Nasal Cannula 3.0 11/04/16 15:45 70 16 140/60 100 Nasal Cannula 3.0 11/04/16 15:30 72 16 138/60 100 Nasal Cannula 3.0 11/04/16 15:15 76 12 153/61 98 Simple Mask 6.0 11/04/16 15:10 78 31 175/86 98 Simple Mask 6.0 11/04/16 15:07 83 16 95 11/04/16 15:05 79 31 160/85 98 Simple Mask 6.0 11/04/16 15:00 98.1 83 14 153/74 100 Simple Mask 6.0 11/04/16 12:49 98.4 67 18 115/58 96 Room Air 11/04/16 08:50 98.2 77 20 125/60 94 Room Air 11/04/16 04:00 98.1 71 20 107/59 97 Room Air 11/04/16 00:08 99.5 81 22 104/64 93 Room Air Intake and Output 11/03/16 11/04/16 19:00 07:00 Intake Total 1265 ml 975 ml Output Total 1900 ml 675 ml Balance -635 ml 300 ml Intake Oral 440 ml IV Total 825 ml 975 ml Output Urine Total 1900 ml 675 ml 2D Echo: LVEF 65%, Mild MR, MOd AR, Grade I LVDD, RVSP 22 mmHg Objective HEENT: Atraumatic and normocephalic. Pupils are equal, round, and reactive to light and accommodation. Extraocular muscles are intact. NECK: JVP less than 5 cm. No carotid bruit. Carotid upstrokes 2+ bilaterally. CVS: Normal S1 and S2. Regular ate and rhythm. No murmurs, gallops, or rubs. PMI is at the fourth intercostal space in the midclavicular line. LUNGS: Clear to auscultation bilaterally. ABDOMEN: Soft, nontender, and nondistended. No hepatosplenomegaly. Positive bowel sounds. EXTREMITIES: No evidence of edema, clubbing, or cyanosis. CHAPITO KING Nov 04, 2016 23:55
[2016-11-05] VITALS: BP 98/60
[2016-11-05] MEDS: ceFAZolin sod 2 GM in D5W 110 ML IV SCH (02:08)
[2016-11-05 04:00] VITALS: BP 95/56
[2016-11-05 07:45] LABS: BASOPHILS % (AUTO) 0.2 % (0.0-2.0); LYMPHOCYTES % (AUTO) 14.4 % (20.0-45.0); MEAN CORPUSCULAR HEMOGLOBIN 31.6 PG (27.0-31.0); MEAN CORPUSCULAR VOLUME 96 FL (80-99); MEAN PLATELET VOLUME 6.9 FL (6.5-10.1); MONOCYTES % (AUTO) 12.1 % (1.0-10.0); NEUTROPHILS % (AUTO) 73.3 % (45.0-75.0); PLATELET COUNT 202 K/UL (150-450); RED BLOOD COUNT 3.12 M/UL (4.20-5.40); WHITE BLOOD COUNT 11.9 K/UL (4.8-10.8)
[2016-11-05] MEDS: D5 1/2NS w/KCl 20mEq 1,000 ML IV SCH ×2 (07:50→21:10)
--- NOTE | 2016-11-05 07:55 | Cardiology Report ---
APPROVED REPORT EXAM: Two-dimensional and M-mode echocardiogram with Doppler and color Doppler. INDICATION Preop Eval M-Mode DIMENSIONS IVSd1.3 (0.7-1.1cm)Left Atrium (MM)2.8 (1.6-4.0cm) LVDd5.5 (3.5-5.6cm)Aortic Root3.1 (2.0-3.7cm) PWd1.0 (0.7-1.1cm)Aortic Cusp Exc.1.5 (1.5-2.0cm) LVDs3.7 (2.5-4.0cm) PWs1.5 cm Other Information Technically limited study due to poor acoustical windows. Normal left ventricular chamber size, systolic function and wall motion to extent visualized. Left ventricular ejection fraction estimated to be 65 %. Moderate left ventricular hypertrophy by 2-D. Anterior Echo-free space, may be due to pericardial fat or effusion. All other cardiac chamber sizes are within normal limits. Focal aortic valve sclerosis with adequate cusp excursion. Thickened mitral valve leaflets with normal excursion. Mitral annulus and aortic root calcification. Pulmonic valve not well visualized. Normal tricuspid valve structure. IVC at normal size with physiologic collapse. A color flow and spectral Doppler study was performed and revealed: Mild aortic regurgitation. Mild mitral regurgitation. Mitral diastolic velocities suggest reduced left ventricular relaxation c/w mild LV diastolic dysfunction (Grade I). Trace to mild tricuspid regurgitation. Tricuspid systolic velocities suggests peak right ventricular systolic pressure of 22 mmHg.
--- NOTE | 2016-11-05 07:57 | Diagnostic Imaging Report ---
Indications: Open reduction and internal fixation of left femur fracture Technique: AP view of the lower pelvis, 2 views of the left thigh Findings: Comparison: Intraoperative imaging performed earlier today Medullary janee bridges a fracture of the mid diaphysis of the left femur, anatomically aligned. Proximal and distal anchoring screws are in place. Surrounding soft tissues are swollen with gas. IMPRESSION: ORIF left femoral metadiaphyseal fracture
[2016-11-05 08:09] LABS: ANION GAP 15 (5-15); CALCIUM 7.8 mg/dL (8.6-10.2); CARBON DIOXIDE 24 mEQ/L (20-30); CHLORIDE 98 mEQ/L (98-107); CREATININE 0.8 mg/dL (0.5-0.9); HEMOLYSIS 6; POTASSIUM 3.9 mEQ/L (3.4-4.9); SODIUM 137 mEQ/L (135-145)
[2016-11-05 08:14] VITALS: BP 115/63
--- NOTE | 2016-11-05 08:33 | Orthopedic Progress Note ---
Orthopedic - Progress Note Subjective Symptoms: improved - up in chair Objective Vital Signs Laboratory Tests Test 11/05/16 07:10 White Blood Count 11.9 K/UL (4.8-10.8) H Red Blood Count 3.12 M/UL (4.20-5.40) L Hemoglobin 9.8 G/DL (12.0-16.0) L Hematocrit 29.8 % (37.0-47.0) L Mean Corpuscular Volume 96 FL (80-99) Mean Corpuscular Hemoglobin 31.6 PG (27.0-31.0) H Mean Corpuscular Hemoglobin Concent 33.0 G/DL (32.0-36.0) Red Cell Distribution Width 11.0 % (11.6-14.8) L Platelet Count 202 K/UL (150-450) Mean Platelet Volume 6.9 FL (6.5-10.1) Neutrophils (%) (Auto) 73.3 % (45.0-75.0) Lymphocytes (%) (Auto) 14.4 % (20.0-45.0) L Monocytes (%) (Auto) 12.1 % (1.0-10.0) H Eosinophils (%) (Auto) 0.0 % (0.0-3.0) Basophils (%) (Auto) 0.2 % (0.0-2.0) Sodium Level 137 mEQ/L (135-145) Potassium Level 3.9 mEQ/L (3.4-4.9) Chloride Level 98 mEQ/L (98-107) Carbon Dioxide Level 24 mEQ/L (20-30) Anion Gap 15 (5-15) Blood Urea Nitrogen 10 mg/dL (7-23) Creatinine 0.8 mg/dL (0.5-0.9) Estimat Glomerular Filtration Rate mL/min (>60) Glucose Level 131 mg/dL (74-106) H Calcium Level 7.8 mg/dL (8.6-10.2) L Last 24 Hour Vital Signs Date Time Temp Pulse Resp B/P Pulse Ox O2 Delivery O2 Flow Rate FiO2 11/05/16 08:14 97.0 73 18 115/63 96 Room Air 11/05/16 04:00 99.0 70 16 95/56 96 Room Air 11/05/16 00:00 98.2 78 18 98/60 95 Room Air 11/04/16 20:00 98.2 74 18 113/62 95 Room Air 11/04/16 16:00 97.8 73 18 129/57 100 Nasal Cannula 3.0 11/04/16 15:45 70 16 140/60 100 Nasal Cannula 3.0 11/04/16 15:30 72 16 138/60 100 Nasal Cannula 3.0 11/04/16 15:15 76 12 153/61 98 Simple Mask 6.0 11/04/16 15:10 78 31 175/86 98 Simple Mask 6.0 11/04/16 15:07 83 16 95 11/04/16 15:05 79 31 160/85 98 Simple Mask 6.0 11/04/16 15:00 98.1 83 14 153/74 100 Simple Mask 6.0 11/04/16 12:49 98.4 67 18 115/58 96 Room Air 11/04/16 08:50 98.2 77 20 125/60 94 Room Air I&O Intake and Output 11/04/16 11/05/16 19:00 07:00 Intake Total 1185 ml 240 ml Output Total 300 ml 950 ml Balance 885 ml -710 ml Intake Oral 240 ml IV Total 1185 ml Output Urine Total 150 ml 950 ml Estimated Blood Loss 150 ml Wound: clean, dry, intact Drains: none Neuro Status: normal Vascular Status: normal Additional Comments Xray reviewed: excellent reduction and stabilization Assessment Post-op Diagnosis POD 1 Procedure Performed left femur ORIF Plan Plan: PT, discharge plan - likely rehab. f/u Dr. Crespo 2 weeks for stiches removal, other - monitor H&H tomorrow- may need tx if drops TRINITY PARKER Nov 05, 2016 08:33
[2016-11-05] MEDS: oxyCONTIN 20mg tab ORAL SCH ×2 (08:39→21:00)
[2016-11-05] MEDS: Docusate 100mg tablet ORAL SCH ×3 (08:39→18:05)
[2016-11-05] MEDS: Enoxaparin 30mg Inj SUBQ SCH (08:55)
--- NOTE | 2016-11-05 09:50 | 48 Hour Post Anesthesia Eval ---
Post Anesthesia Evaluation Procedure: Left femur ORIF Date of Evaluation: Nov 05, 2016 Time of Evaluation: 09:49 Blood Pressure Systolic: 115 0: 63 Pulse Rate: 73 Respiratory Rate: 18 Temperature (Fahrenheit): 97 O2 Sat by Pulse Oximetry: 96 Airway: patent Nausea: No Vomiting: No Pain Intensity: 2 Hydration Status: adequate Cardiopulmonary Status: Stable Mental Status/LOC: patient returned to baseline Follow-up Care/Observations: 0 Post-Anesthesia Complications: 0 Follow-up care needed: N/A Subhash Alamo MD Nov 05, 2016 09:50
--- NOTE | 2016-11-05 10:29 | General Progress Note ---
Assessment/Plan Status: stable Assessment/Plan 1- Mechanical Fall and left femur fracture, post op 2- HTN 3- HLP 4- Anemia 5- GI-DVT prophylaxia 6. UTI Plan: Pending Rehab eval for ARU placement Assessment case is discussed with the daughter in details Post Op D#2 Subjective ROS Limited/Unobtainable: No Constitutional: Reports: weakness HEENT: Reports: no symptoms Cardiovascular: Reports: no symptoms Respiratory: Reports: no symptoms Allergies: Coded Allergies: No Known Allergies (Unverified , 11/02/16) Objective Last 24 Hour Vital Signs Date Time Temp Pulse Resp B/P Pulse Ox O2 Delivery O2 Flow Rate FiO2 11/05/16 09:50 73 18 96 11/05/16 08:14 97.0 73 18 115/63 96 Room Air 11/05/16 04:00 99.0 70 16 95/56 96 Room Air 11/05/16 00:00 98.2 78 18 98/60 95 Room Air 11/04/16 20:00 98.2 74 18 113/62 95 Room Air 11/04/16 16:00 97.8 73 18 129/57 100 Nasal Cannula 3.0 11/04/16 15:45 70 16 140/60 100 Nasal Cannula 3.0 11/04/16 15:30 72 16 138/60 100 Nasal Cannula 3.0 11/04/16 15:15 76 12 153/61 98 Simple Mask 6.0 11/04/16 15:10 78 31 175/86 98 Simple Mask 6.0 11/04/16 15:07 83 16 95 11/04/16 15:05 79 31 160/85 98 Simple Mask 6.0 11/04/16 15:00 98.1 83 14 153/74 100 Simple Mask 6.0 11/04/16 12:49 98.4 67 18 115/58 96 Room Air Intake and Output 11/04/16 11/05/16 19:00 07:00 Intake Total 1185 ml 240 ml Output Total 300 ml 950 ml Balance 885 ml -710 ml Intake Oral 240 ml IV Total 1185 ml Output Urine Total 150 ml 950 ml Estimated Blood Loss 150 ml Laboratory Tests 11/05/16 07:10: White Blood Count 11.9H, Red Blood Count 3.12L, Hemoglobin 9.8L, Hematocrit 29.8L, Mean Corpuscular Volume 96, Mean Corpuscular Hemoglobin 31.6H, Mean Corpuscular Hemoglobin Concent 33.0, Red Cell Distribution Width 11.0L, Platelet Count 202, Mean Platelet Volume 6.9, Neutrophils (%) (Auto) 73.3, Lymphocytes (%) (Auto) 14.4L, Monocytes (%) (Auto) 12.1H, Eosinophils (%) (Auto ) 0.0, Basophils (%) (Auto) 0.2, Sodium Level 137, Potassium Level 3.9, Chloride Level 98, Carbon Dioxide Level 24, Anion Gap 15, Blood Urea Nitrogen 10 , Creatinine 0.8, Estimat Glomerular Filtration Rate , Glucose Level 131H, Calcium Level 7.8L Height (Feet): 5 Height (Inches): 0.00 Weight (Pounds): 95 General Appearance: no apparent distress EENT: PERRL/EOMI Neck: supple Cardiovascular: normal rate Respiratory/Chest: lungs clear Abdomen: soft Extremities: other - left hip in traction and limited ROM, post op Neurologic: road machine operator II-XII grossly normal Shawn Gonzalez MD Nov 05, 2016 10:29
[2016-11-05 11:55] VITALS: BP 94/60
[2016-11-05 16:00] VITALS: BP 106/64
[2016-11-05] MEDS ORDERED: Tubing IV Secondary IV ONE (16:20)
[2016-11-05] MEDS ORDERED: D5 1/2NS 1000ml IV ONE (16:20)
[2016-11-05 20:00] VITALS: BP 109/65
[2016-11-06 04:00] VITALS: BP 105/59
[2016-11-06 07:27] LABS: BASOPHILS % (AUTO) 0.8 % (0.0-2.0); EOSINOPHILS % (AUTO) 0.4 % (0.0-3.0); LYMPHOCYTES % (AUTO) 22.5 % (20.0-45.0); MEAN CORPUSCULAR HEMOGLOBIN 31.8 PG (27.0-31.0); MEAN CORPUSCULAR HGB CONC 33.1 G/DL (32.0-36.0); MEAN CORPUSCULAR VOLUME 96 FL (80-99); MEAN PLATELET VOLUME 6.8 FL (6.5-10.1); MONOCYTES % (AUTO) 10.4 % (1.0-10.0); PLATELET COUNT 217 K/UL (150-450); RED BLOOD COUNT 3.15 M/UL (4.20-5.40); RED CELL DISTRIBUTION WIDTH 11.2 % (11.6-14.8); WHITE BLOOD COUNT 11.7 K/UL (4.8-10.8)
[2016-11-06 07:57] VITALS: BP 113/59
[2016-11-06] MEDS: oxyCONTIN 20mg tab ORAL SCH ×2 (08:59→21:00)
[2016-11-06] MEDS: Docusate 100mg tablet ORAL SCH ×3 (08:59→18:29)
[2016-11-06] MEDS: Enoxaparin 30mg Inj SUBQ SCH (09:03)
--- NOTE | 2016-11-06 10:19 | General Progress Note ---
Assessment/Plan Status: stable Assessment/Plan 1- Mechanical Fall and left femur fracture, post op 2- HTN 3- HLP 4- Anemia 5- GI-DVT prophylaxia 6. UTI Plan: Pending Rehab eval for ARU placement Post Op D#3 Subjective ROS Limited/Unobtainable: No Constitutional: Reports: no symptoms HEENT: Reports: no symptoms Cardiovascular: Reports: no symptoms Respiratory: Reports: no symptoms Allergies: Coded Allergies: No Known Allergies (Unverified , 11/02/16) Objective Last 24 Hour Vital Signs Date Time Temp Pulse Resp B/P Pulse Ox O2 Delivery O2 Flow Rate FiO2 11/06/16 07:57 98.2 85 20 113/59 94 Room Air 11/06/16 04:00 98.2 79 18 105/59 95 Room Air 11/05/16 20:00 98.2 77 18 109/65 94 Room Air 11/05/16 16:00 98.2 79 17 106/64 100 Room Air 11/05/16 11:55 97.2 63 18 94/60 100 Room Air Intake and Output 11/05/16 11/06/16 19:00 07:00 Intake Total 360 ml 120 ml Output Total 650 ml Balance -290 ml 120 ml Intake Oral 360 ml 120 ml Output Urine Total 650 ml # Voids 1 5 Laboratory Tests 11/06/16 06:30: White Blood Count 11.7H, Red Blood Count 3.15L, Hemoglobin 10.0L, Hematocrit 30.2L, Mean Corpuscular Volume 96, Mean Corpuscular Hemoglobin 31.8H, Mean Corpuscular Hemoglobin Concent 33.1, Red Cell Distribution Width 11.2L, Platelet Count 217, Mean Platelet Volume 6.8, Neutrophils (%) (Auto) 66.0, Lymphocytes (%) (Auto) 22.5, Monocytes (%) (Auto) 10.4H, Eosinophils (%) (Auto) 0.4, Basophils (%) (Auto) 0.8 Height (Feet): 5 Height (Inches): 0.00 Weight (Pounds): 95 General Appearance: no apparent distress EENT: PERRL/EOMI Neck: supple Cardiovascular: normal rate Respiratory/Chest: lungs clear Abdomen: soft Extremities: other - decreased ROM of left LE Neurologic: neuropsychology service director II-XII grossly normal Shawn Gonzalez MD Nov 06, 2016 10:19
[2016-11-06] MEDS: D5 1/2NS w/KCl 20mEq 1,000 ML IV SCH (10:30)
[2016-11-06 11:43] VITALS: BP 113/67
[2016-11-06] MEDS ORDERED: ACETAMINOPHEN325 M1 ORAL (12:38)
[2016-11-06] MEDS ORDERED: LOVENOX10 MG SUBQ (12:39)
[2016-11-06] MEDS ORDERED: DOCUSATE SODIU100 MG ORAL (12:39)
[2016-11-06] MEDS ORDERED: FERROUS SULFAT325 MG ORAL (12:40)
[2016-11-06] MEDS ORDERED: NORCO 5-325 TA1 EACH ORAL (12:41)
[2016-11-06] MEDS ORDERED: NORCO1 E1 ORAL (12:41)
[2016-11-06] MEDS ORDERED: HYDROMORPHO2 MG/1 M5 SUBQ ×2 (12:42→12:43)
[2016-11-06] MEDS ORDERED: MILK OF MA400 MG/51 ORAL (12:44)
[2016-11-06] MEDS ORDERED: HYDROMORPH1 MG/50 ML SUBQ (12:44)
[2016-11-06] MEDS ORDERED: ZOFRAN4 M3 ORAL (12:45)
[2016-11-06] MEDS ORDERED: OXYCONTIN20 MG ORAL (12:45)
[2016-11-06 15:08] VITALS: BP 99/51
--- NOTE | 2016-11-06 15:23 | Wound Care Consultation ---
Wound Assessment Wound Assessment : Wound Present on Admission: Yes New Wound: No Status Change of Wound: No Wound Location Body Site Modif: left, medial Wound Location Body Site: thigh Wound Type: blister - open Blisters: Denuded Blister Wound Thickness: Partial Thickness Wound Length: 2.0 Wound Width: 1.0 Wound Depth: 0.1 Percent of Wound [place]/Red: 100 Wound Drainage Description: Serosanguineous Wound Drainage Amount: Scant Wound Drainage Odor: None/Absent Tissue Surrounding Wound: Erythemic Wound General Appearance: Reddened Wound Comment #1 Open blister on left medial thigh Recommendation -Cleanse with saline, pat dry, apply adaptic, secure with transparent drg Q3rd day and PRN soiled/dislodged -Optimize nutrition -Keep clean and dry -Assess for s/s infection and f/u accordingly for any changes SONAM PATTERSON RN Nov 06, 2016 15:23
[2016-11-06 16:20] VITALS: BP 113/59
[2016-11-06 20:41] VITALS: BP 114/65
--- NOTE | 2016-11-06 23:22 | Cardiology Progress Note ---
Assessment/Plan Assessment/Plan 1. s/p left femur ORIF, POD # 2, no perioperative cardiac events, continue DVT prophylaxis, pain control, hydration. 2. Normal LV systolic function with LVEF at 55%. 3. Moderate aortic regurgitation, asymptomatic. 4. HTN 5. Hyperlipidemia Subjective Subjective Transferred to the surgical floor. s/p Left femur ORIF POD #2 Objective Last 24 Hour Vital Signs Date Time Temp Pulse Resp B/P Pulse Ox O2 Delivery O2 Flow Rate FiO2 11/06/16 20:41 99.1 81 18 114/65 98 Room Air 11/06/16 16:20 98.8 77 20 113/59 94 Room Air 11/06/16 15:08 97.2 71 18 99/51 98 Nasal Cannula 11/06/16 11:43 98.4 79 20 113/67 93 Room Air 11/06/16 07:57 98.2 85 20 113/59 94 Room Air 11/06/16 04:00 98.2 79 18 105/59 95 Room Air Intake and Output 11/05/16 11/06/16 19:00 07:00 Intake Total 360 ml 120 ml Output Total 650 ml Balance -290 ml 120 ml Intake Oral 360 ml 120 ml Output Urine Total 650 ml # Voids 1 5 2D Echo: LVEF 65%, Mild MR, MOd AR, Grade I LVDD, RVSP 22 mmHg Laboratory Tests Test 11/06/16 06:30 White Blood Count 11.7 K/UL (4.8-10.8) H Red Blood Count 3.15 M/UL (4.20-5.40) L Hemoglobin 10.0 G/DL (12.0-16.0) L Hematocrit 30.2 % (37.0-47.0) L Mean Corpuscular Volume 96 FL (80-99) Mean Corpuscular Hemoglobin 31.8 PG (27.0-31.0) H Mean Corpuscular Hemoglobin Concent 33.1 G/DL (32.0-36.0) Red Cell Distribution Width 11.2 % (11.6-14.8) L Platelet Count 217 K/UL (150-450) Mean Platelet Volume 6.8 FL (6.5-10.1) Neutrophils (%) (Auto) 66.0 % (45.0-75.0) Lymphocytes (%) (Auto) 22.5 % (20.0-45.0) Monocytes (%) (Auto) 10.4 % (1.0-10.0) H Eosinophils (%) (Auto) 0.4 % (0.0-3.0) Basophils (%) (Auto) 0.8 % (0.0-2.0) Objective HEENT: Atraumatic and normocephalic. Pupils are equal, round, and reactive to light and accommodation. Extraocular muscles are intact. NECK: JVP less than 5 cm. No carotid bruit. Carotid upstrokes 2+ bilaterally. CVS: Normal S1 and S2. Regular ate and rhythm. No murmurs, gallops, or rubs. PMI is at the fourth intercostal space in the midclavicular line. LUNGS: Clear to auscultation bilaterally. ABDOMEN: Soft, nontender, and nondistended. No hepatosplenomegaly. Positive bowel sounds. EXTREMITIES: No evidence of edema, clubbing, or cyanosis. CHAPITO KING Nov 06, 2016 23:22
[2016-11-07 00:22] VITALS: BP 101/58
[2016-11-07 04:06] VITALS: BP 122/62
[2016-11-07 07:40] LABS: BASOPHILS % (AUTO) 0.5 % (0.0-2.0); EOSINOPHILS % (AUTO) 0.6 % (0.0-3.0); LYMPHOCYTES % (AUTO) 21.5 % (20.0-45.0); MEAN CORPUSCULAR HEMOGLOBIN 31.5 PG (27.0-31.0); MEAN CORPUSCULAR HGB CONC 32.8 G/DL (32.0-36.0); MEAN CORPUSCULAR VOLUME 96 FL (80-99); MEAN PLATELET VOLUME 7.1 FL (6.5-10.1); MONOCYTES % (AUTO) 9.1 % (1.0-10.0); NEUTROPHILS % (AUTO) 68.3 % (45.0-75.0); PLATELET COUNT 200 K/UL (150-450); RED BLOOD COUNT 2.95 M/UL (4.20-5.40); RED CELL DISTRIBUTION WIDTH 11.3 % (11.6-14.8)
[2016-11-07 07:48] VITALS: BP 120/70
--- NOTE | 2016-11-07 08:47 | General Progress Note ---
Assessment/Plan Status: stable Assessment/Plan 1- Mechanical Fall and left femur fracture, post op and ORIF 2- HTN 3- HLP 4- Anemia 5- GI-DVT prophylaxia 6. UTI Plan: Post Op D#4 Medically stable for outpatient followup Subjective ROS Limited/Unobtainable: No Constitutional: Reports: no symptoms Cardiovascular: Reports: no symptoms Respiratory: Reports: no symptoms Neurologic/Psychiatric: Reports: no symptoms Allergies: Coded Allergies: No Known Allergies (Unverified , 11/02/16) Objective Last 24 Hour Vital Signs Date Time Temp Pulse Resp B/P Pulse Ox O2 Delivery O2 Flow Rate FiO2 11/07/16 07:48 98.1 77 18 120/70 94 Room Air 11/07/16 04:06 97.8 68 18 122/62 94 Room Air 11/07/16 00:22 98.1 76 19 101/58 95 Room Air 11/06/16 20:41 99.1 81 18 114/65 98 Room Air 11/06/16 16:20 98.8 77 20 113/59 94 Room Air 11/06/16 15:08 97.2 71 18 99/51 98 Nasal Cannula 11/06/16 11:43 98.4 79 20 113/67 93 Room Air Intake and Output 11/06/16 11/07/16 19:00 07:00 Intake Total 370 ml 240 ml Output Total 300 ml Balance 70 ml 240 ml Intake Oral 370 ml 240 ml Output Urine Total 300 ml # Voids 5 5 Laboratory Tests 11/07/16 05:30: White Blood Count 9.0, Red Blood Count 2.95L, Hemoglobin 9.3L, Hematocrit 28.3L , Mean Corpuscular Volume 96, Mean Corpuscular Hemoglobin 31.5H, Mean Corpuscular Hemoglobin Concent 32.8, Red Cell Distribution Width 11.3L, Platelet Count 200, Mean Platelet Volume 7.1, Neutrophils (%) (Auto) 68.3, Lymphocytes (%) (Auto) 21.5, Monocytes (%) (Auto) 9.1, Eosinophils (%) (Auto) 0.6, Basophils (%) (Auto) 0.5 Height (Feet): 5 Height (Inches): 0.00 Weight (Pounds): 95 General Appearance: WD/WN EENT: PERRL/EOMI Neck: non-tender Cardiovascular: normal rate Respiratory/Chest: lungs clear Abdomen: soft Extremities: other - decreased ROm in left LE post-op Neurologic: testing specialist II-XII grossly normal Shawn Gonzalez MD Nov 07, 2016 08:47
[2016-11-07] MEDS: Docusate 100mg tablet ORAL SCH ×2 (09:00→13:00)
[2016-11-07] MEDS: oxyCONTIN 20mg tab ORAL SCH (09:00)
[2016-11-07] MEDS: Enoxaparin 30mg Inj SUBQ SCH (10:10)
[2016-11-07 12:04] VITALS: BP 107/63
--- NOTE | 2016-11-10 14:05 | Discharge Summary ---
Discharge Summary Hospital Course Date of Admission Nov 02, 2016 at 18:20 Date of Discharge Nov 07, 2016 at 16:15 Admitting Diagnosis MID FEMUR FRACTURE HPI Xavi Gordon is a 86 year old female who was admitted on Nov 02, 2016 at 18:20 for Mid Femur Fracture Hospital Course dc summary#[id number] Discharge Medications Continued Medications: Acetaminophen* (Acetaminophen 325MG Tablet*) 325 Mg Tablet 650 MG ORAL Q4H PRN for Mild Pain/Temp > 100.5, TAB Acetaminophen/Hydrocodone ([place] 7.5-325 Tablet) 1 Each Tablet 1 TAB ORAL Q4H PRN for Moderate Pain (Pain Scale 4-6), #30 TAB 0 Refills Atorvastatin Calcium* (Atorvastatin Calcium*) 20 Mg Tablet 10 MG ORAL BEDTIME, TAB Docusate Sodium* (Docusate Sodium*) 100 Mg Capsule 100 MG ORAL THREE TIMES A DAY, CAP Enoxaparin* (Lovenox*) 30 Mg/0.3 Ml Inj 30 MG SUBQ DAILY, #30 EA 0 Refills Escitalopram Oxalate* (Lexapro*) 10 Mg Tablet 5 MG ORAL DAILY, TAB Ferrous Sulfate* (Ferrous Sulfate*) 325 Mg Tablet 325 MG ORAL THREE TIMES A DAY, #90 TAB 0 Refills Magnesium Hydroxide* (Milk Of Magnesia*) 400 Mg/5 Ml Oral.susp 30 ML ORAL DAILY PRN for Constipation, ML Nebivolol Hcl (Bystolic) 5 Mg Tablet 5 MG ORAL DAILY, TAB Ondansetron* (Zofran*) 4 Mg Tablet 4 MG ORAL Q6H PRN for Nausea & Vomiting, TAB Oxycodone Hcl Er* (Oxycontin*) 20 Mg Tab.er.12h 20 MG ORAL EVERY 12 HOURS PRN for give only if pain present, TAB Discontinued Medications: Hydrocodone Bit/Acetaminophen 5-325* ([place] 5-325*) 1 Each Tablet 2 TAB ORAL Q6H PRN for Severe Pain (Pain Scale 7-10), #10 TAB 0 Refills Hydromorphone HCl in 0.9% NaCl (Hydromorphone 1 Mg/50 Ml-Ns) 1 Mg/50 Ml Plast..bag 1 MG SUBQ Q4HR PRN for Mild Pain/Temp > 100.5, BAG Hydromorphone Hcl/Pf (Hydromorphone 2 Mg/Ml Syringe*) 2 Mg/1 Ml Disp.syrin 2 MG SUBQ Q3HR PRN for Severe Breakthru Pain (>7), EA 0 Refills Hydromorphone Hcl/Pf (Hydromorphone 2 Mg/Ml Syringe*) 2 Mg/1 Ml Disp.syrin 2 MG SUBQ Q4HR PRN for Moderate Pain (Pain Scale 4-6), EA 0 Refills No Known Medications* (NKM - No Known Medications*) . 0 ., 0 Refills Discharge Condition Upon Discharge: stable Discharge Disposition [facility] Discharge Diagnoses: Discharge Instructions Discharge Instructions Special Instructions I have been assigned to complete a D/C Summary on this account. I was not involved in the patient management Jessica Mock NP ([place]te[place]) November 10, 2016 14:05
--- NOTE | 2016-11-11 04:28 | Discharge Summary 2 SIG ---
DATE OF ADMISSION: 11/02/2016 DATE OF DISCHARGE: 11/07/2016 REASON FOR ADMISSION: 86-year-old female was brought to the emergency room for evaluation after she sustained mechanical fall and complained of pain in the left mid femur. The patient was medicated for pain in the field by paramedics. There was no report of syncope. No lightheadedness. No dizziness. The patient had underlying history of hypertension and hyperlipidemia. Workup in the emergency room revealed mild leukocytosis of 11.9. X-ray of the left femur revealed mid shaft displaced femur fracture. EKG showed normal sinus rhythm. Chest x-ray shows chronic changes, no acute cardiopulmonary pathology. Troponin was negative. Traction splint to left lower extremity was applied. Orthopedic consult requested and the patient was admitted for further management. ADMITTING DIAGNOSES: 1. Status post mechanical fall, 2. Left mid shaft displaced femoral fracture. 3. Hypertension. 4. Hyperlipidemia. 5. Anemia. 6. Depression and anxiety. HOSPITAL STAY: The patient was admitted. Ortho consult requested. Echocardiogram and EKG ordered for cardiac clearance to clear for surgery. Echocardiogram revealed preserved ejection fraction of 65%. Right ventricular systolic pressure of 22 as well as the moderate aortic sclerosis. Park Ranger cleared the patient for surgery. The patient had intermediate risk only. The patient subsequently undergone open reduction and internal fixation of the left femur fracture on 11/04/2016. Course of recovery was uneventful. Pain management provided. Incentive spirometry at the bedside while not ambulated. The patient was working with physical and occupational therapists. Dressing clean, dry, and intact. Neurovascular intact. Pain management was controlled. DVT and GI prophylaxis provided. The patient was able to tolerate diet. Plan was to discharge the patient for [facility] term to jail facility and follow up with orthopedic surgeon in two weeks. Family agreed with the plan. Blood pressure was managed with the current regimen and was stable. Continue statin. Hemoglobin and hematocrit were closely monitored, at the baseline. No trend down. The patient was on an antidepressant Lexapro. Iron supplement added to existing medication regimen. Anticoagulation with Lovenox. Bowel regimen instituted. The patient was stable for discharge. DISCHARGE DIAGNOSES: 1. Status post mechanical fall. 2. Left mid shaft displaced femoral fracture. 3. Hypertension. 4. Hyperlipidemia. 5. Anemia. 6. Depression/anxiety. 7. Status post open reduction and internal fixation in left femur on 11/04/2016. 8. Moderate aortic sclerosis/asymptomatic. DISCHARGE MEDICATIONS: See medication reconciliation list. DISCHARGE INSTRUCTIONS: The patient discharged to jail facility. Follow up with orthopedic surgeon as outpatient in two weeks for stitches removal. Fall precautions. Shawn Gonzalez M.D. I have been assigned to dictate discharge summary on this account and I was not involved in the patient's management. Jessica Mock (Vanchtein) NEjPEj DR: Justin JOB#: [id number] CC: KURT
== END 2016-11-07 16:15 | DRG 481 ==
LOC: EDBD 11:54 → EMR 14:19 → EDBEDREQ 14:25 → 4W 18:20 → 3E 11-04 20:00
PROC: 0QS904Z Reposition Left Femoral Shaft with Internal Fixation Device, Open Approach (ICD-10-PCS; principal; 2016-11-04 13:00)
DX: S72.392A Other fracture of shaft of left femur, initial encounter for closed fracture (principal); N39.0 Urinary tract infection, site not specified; D64.9 Anemia, unspecified; W19.XXXA Unspecified fall, initial encounter; I10 Essential (primary) hypertension; E78.5 Hyperlipidemia, unspecified; F41.8 Other specified anxiety disorders; I35.8 Other nonrheumatic aortic valve disorders
CPT/HCPCS: 36415; 71010; 72170; 76001; 80048; 80053; 80061; 81001; 82550; 82553; 83036; 84484; 85025; 85610; 85730; 93005; 93306; 94003; 94150; J2405; J2710